=== PATIENT | female | born 1975 | race Caucasian/White ===

== ENCOUNTER 2018-03-04 05:31 | Day surgery (SDC) | payer OTHER ==
[~2018-03-04] VITALS: Ht 165.1 cm; Wt 138.3 kg
[~2018-03-04 05:31] MED LIST: LIORESAL 10 MG10 MG PO; NEURONTIN300 MG PO; NEXIUM40 MG PO; PEPCID20 MG PO; PEPCID40 MG PO; SYNTHROID175 MCG PO; SYNTHROID200 MCG PO; VENTOLIN HFA 1818 GM INH; VITAMIN D35000 UNI1 PO
[2018-03-04 11:35] VITALS: BP 147/87
--- NOTE | 2018-03-08 06:19 | O ---
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 PROCEDURE: Right conjunctivoplasty with inferior fornix reformation and temporary tarsorrhaphy. SURGEON: Primo Jones M.D. YEAST DISTILLER: None. ANESTHESIA: General. COMPLICATIONS: None. 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 She has a severely contracted right socket that is at such a point now where she cannot wear prosthesis. She presents today for a socket reconstruction in order to attempt to allow her to wear a prosthesis. Informed consent was obtained to include but not limited to the potential risk for bleeding, infection, and the need for further surgery or treatment. She also understands that this is primarily a temporizing measure. DESCRIPTION OF PROCEDURE: The patient was taken to the operating room where general anesthesia was administered. The right socket was then anesthetized with Xylocaine with epinephrine mixed with Marcaine and Wydase. The right upper lid was retracted as a transconjunctival dissection was undertaken down to the inferior border of the orbit around the anterior premalar space. Hemostasis was re-achieved then with pinpoint monopolar cautery. The conjunctiva was then undermined sufficiently to allow it to be redraped over the inferior portion of the socket allowing a deep inferior ledge to be created. Multiple interrupted mattress 5-0 chromic sutures were passed [address] [address] OPERATIVE REPORT Name: TONNY CISSE Room #: DEP [facility] M.R.#: [id number] Admission: 03/04/18 Attend Phys: Primo Jones MD Discharge: 03/04/18 Date of : 77 Report #: [id number] transconjunctivally and secured in the premalar space to draw the undermined conjunctiva that had been rotated into the inferior fornix into a position that would allow prosthesis to hold that shape. A small conformer was placed in the socket, but was found to be too large, not because the inferior fornix was not deep enough, but because of the superior fornix. The decision was made to use the patient's original prosthesis. That prosthesis was then soaked in 10% Betadine solution and subsequently scrubbed. It was then rinsed copiously with saline prior to being placed in the socket. A temporary tarsorrhaphy was then fashioned from a short section of IV tubing and a double armed 5-0 Prolene suture passed. This was placed in the central portion of the lid with bolsters made out of hemisection IV tubing. Erythromycin ophthalmic ointment was then placed on the eye and the patient subsequently transported to the recovery area having tolerated the procedures well with no anesthetic or operative complications being noted. <ELECTRONICALLY SIGNED> By: Primo Jones MD 03/08/18 0619 [id number] Primo Jones MD /nt
== END 2018-03-04 14:10 | disposition home or self-care (01) ==
LOC: OR 05:31 → TBA 05:31 → OR 09:58
DX: H57.89 Other specified disorders of eye and adnexa (principal); H11.241 Scarring of conjunctiva, right eye; Q11.1 Other anophthalmos; E03.9 Hypothyroidism, unspecified; K21.9 Gastro-esophageal reflux disease without esophagitis; Z85.820 Personal history of malignant melanoma of skin; Z85.3 Personal history of malignant neoplasm of breast; Z98.890 Other specified postprocedural states; Z79.899 Other long term (current) drug therapy; Z86.2 Personal history of diseases of the blood and blood-forming organs and certain disorders involving the immune mechanism; Z87.19 Personal history of other diseases of the digestive system; Z98.41 Cataract extraction status, right eye; Z98.42 Cataract extraction status, left eye; Z90.711 Acquired absence of uterus with remaining cervical stump; Z91.041 Radiographic dye allergy status; Z88.8 Allergy status to other drugs, medicaments and biological substances
CPT/HCPCS: 50010; 50101; 50386; 50398; 51636; 56527; 56531; 62110; 62850; 64037; 70005